=== PATIENT | female | born 1975 | race Caucasian/White ===

== ENCOUNTER 2018-07-21 10:38 | Emergency (ER) | payer OTHER ==
[~2018-07-21] VITALS: Ht 157.5 cm; Wt 51.2 kg
[2018-07-21] MEDS ORDERED: SODIUM CHLORIDE 0.9% 1,000 ML IV ONE (10:56)
[2018-07-21] MEDS ORDERED: SODIUM CHLORIDE FLUSH 10ML SYR IVF ONE (11:00)
[2018-07-21] MEDS ORDERED: ONDANSETRON 2MG/ML, 2ML IVPush ONE (11:00)
[2018-07-21] MEDS ORDERED: SODIUM CHLORIDE 0.9% 1,000ML IVBOLUS ONE (11:00)
[2018-07-21] MEDS ORDERED: ONDANSETRON 2MG/ML, 2ML ONE (11:27)
[2018-07-21] MEDS ORDERED: HYDROmorphone 2 MG/ML, 1ML ONE ×2 (11:27→12:43)
[2018-07-21] MEDS: HYDROmorphone 2 MG/ML, 1ML IVPush PRN ×2 (11:30→12:47)
--- NOTE | 2018-07-21 11:30 | NUR ---
Medicated as per emar for 5/10 LUQ pain. IVF hung, pt placed on continuous SPO2 & NIBP monitoring. SR up x 2, call light within reach.
[2018-07-21 11:42] LABS: MICROSCOPIC INDICATED
[2018-07-21 11:43] LABS: ALANINE AMINOTRANSFERASE 20 U/L (12-78); ALBUMIN 4.2 g/dL (3.4-5.0); ANION GAP 5 mmol/L (5-15); CALCIUM 8.6 mg/dL (8.5-10.1); CHLORIDE 105 mmol/L (98-107); CREATININE 0.65 mg/dL (0.55-1.02)
[2018-07-21 11:45] LABS: BASOPHILS # (AUTO) 0.01 x10^3/uL (0-0.1); BASOPHILS % (AUTO) 0 % (0-1); EOSINOPHILS # (AUTO) 0.02 x10^3/uL (0-0.4); EOSINOPHILS % (AUTO) 0 % (1-7); LYMPHOCYTES % (AUTO) 9 % (22-44); MD NO; MEAN CORPUSCULAR HEMOGLOBIN 30.9 pg (27.0-34.8); MEAN CORPUSCULAR HGB CONC 34.3 g/dL (32.4-35.8); MEAN PLATELET VOLUME 7.1 fL (7.4-10.4); MONOCYTES % (AUTO) 7 % (2-9); NEUTROPHILS % (AUTO) 83 % (42-75); PLATELET COUNT 310 x10^3/uL (130-400); RED BLOOD COUNT 4.78 x10^6/uL (3.82-5.3); RED CELL DISTRIBUTION WIDTH 12.9 % (9.6-15.2)
--- NOTE | 2018-07-21 11:45 | NUR ---
Pt reports no nausea, pain improved 2/10. VSS.
[2018-07-21 11:46] LABS: ALKALINE PHOSPHATASE 50 U/L (45-117); BILIRUBIN,TOTAL 0.5 mg/dL (0.2-1.0); TOTAL PROTEIN 7.8 g/dL (6.4-8.2)
[2018-07-21 12:00] LABS: CULTURE INDICATED? NO
--- NOTE | 2018-07-21 12:21 | NUR ---
Plan for CT ABD. Pt updated. Pain controlled.
--- NOTE | 2018-07-21 12:47 | NUR ---
Pt states pain is back 7/10 epigastric & LUQ. Dilaudid IV repeated. Remains on continuous SPO2 & NIBP monitors. CT ABD pending.
--- NOTE | 2018-07-21 13:05 | NUR ---
Pain 3/10, no nausea, CT results pending.
--- NOTE | 2018-07-21 13:06 | NUR ---
Error- still waiting on CT
--- NOTE | 2018-07-21 13:20 | NUR ---
Pt to CT
[2018-07-21] MEDS ORDERED: OMNIPAQUE 350 MG/ML, 100ML BOTTLE ONE (13:23)
[2018-07-21] MEDS ORDERED: CEFTRIAXONE PMX 1GM/50ML 50 ML ONE (13:51)
[2018-07-21] MEDS ORDERED: CEFTRIAXONE PMX 1GM/50ML 50 ML IVPB ONE (14:00)
--- NOTE | 2018-07-21 14:00 | NUR ---
IV abx sabi, POC for d/c after infusion
[2018-07-21 14:46] VITALS: BP 106/55
--- NOTE | 2018-07-21 14:47 | NUR ---
IV abx infused, Patient given discharge instructions and they have confirmed that they understand the instructions. Patient ambulatory with steady gait.
== END 2018-07-21 14:50 | disposition home or self-care (01) ==
LOC: ED 14:44
DX: R10.84 Generalized abdominal pain (principal); J15.9 Unspecified bacterial pneumonia; E03.9 Hypothyroidism, unspecified
CPT/HCPCS: 36415; 74177; 80053; 81001; 83605; 83690; 85025; 87040; 96365; 96375; 96376; 99284; J0696; J1170; J2405; J7030; Q9967

== ENCOUNTER 2019-04-06 16:19 | Emergency (ER) | payer OTHER ==
[~2019-04-06] VITALS: Ht 157.5 cm; Wt 55.0 kg
[2019-04-06 16:22] VITALS: BP 114/73
[2019-04-06] MEDS ORDERED: ONDANSETRON 2MG/ML, 2ML ONE (16:28)
--- NOTE | 2019-04-06 16:31 | NUR ---
PT HERE WITH C/O LEFT SHOULDER PAIN FOR 1 YEAR.
[2019-04-06] MEDS ORDERED: HYDROcodone/APAP 5/325 TABLET ONE (16:57)
--- NOTE | 2019-04-06 16:58 | NUR ---
PT EDICATED PER ORDER, ICE BAG GIVEN.
[2019-04-06] MEDS ORDERED: HYDROcodone/APAP 5/325 TABLET PO ONE (17:00)
--- NOTE | 2019-04-06 17:37 | NUR ---
Patient/Caregiver given discharge instructions and they have confirmed that they understand the instructions. Patient ambulatory with steady gait.
== END 2019-04-06 17:39 | disposition home or self-care (01) ==
LOC: ED 17:38
DX: M75.32 Calcific tendinitis of left shoulder (principal); E03.9 Hypothyroidism, unspecified
CPT/HCPCS: 99283

== ENCOUNTER 2020-10-09 14:11 | Emergency (ER) | payer OTHER ==
[~2020-10-09] VITALS: Ht 157.5 cm; Wt 60.1 kg
--- NOTE | 2020-10-09 15:12 | NUR ---
RETAIL SALESWORKER: PT TO ROOM FROM LOBBY
--- NOTE | 2020-10-09 15:15 | NUR ---
Pt ambulatory to room without gait disturbance noted. States hx ovarian cysts with pain in LLQ x4 days, and states she fears rupture if it's a cyst due to the intensity of the pain. Changing into gown now.
--- NOTE | 2020-10-09 15:45 | NUR ---
patient transportation driver completed. sound technician at bedside for draw. Pt states she will go give a UA sample as soon as lab is done. Supplies and instructions provided for UA with stated understanding.
[2020-10-09] MEDS ORDERED: LEVO25TA2 PO (15:50)
[2020-10-09 16:12] LABS: ALBUMIN 3.9 g/dL (3.4-5.0); CALCIUM 8.9 mg/dL (8.5-10.1); CHLORIDE 107 mmol/L (98-107); CREATININE 0.77 mg/dL (0.55-1.02)
[2020-10-09 16:16] LABS: BASOPHILS % (AUTO) 1 % (0-1); EOSINOPHILS % (AUTO) 2 % (1-7); LYMPHOCYTES % (AUTO) 28 % (22-44); MEAN CORPUSCULAR HEMOGLOBIN 30.4 pg (27.0-34.8); MEAN CORPUSCULAR HGB CONC 34.1 g/dL (32.4-35.8); MEAN PLATELET VOLUME 7.2 fL (7.4-10.4); MONOCYTES % (AUTO) 12 % (2-9); NEUTROPHILS % (AUTO) 58 % (42-75); PLATELET COUNT 329 x10^3/uL (130-400); RED BLOOD COUNT 4.93 x10^6/uL (3.82-5.3); RED CELL DISTRIBUTION WIDTH 12.9 % (9.6-15.2)
[2020-10-09 16:22] LABS: ANION GAP 6 mmol/L (5-15)
--- NOTE | 2020-10-09 16:27 | NUR ---
UA sample obtained and sent. Pt just completed US exam. Call light in reach and US tech brought more warm blankets for pt.
--- NOTE | 2020-10-09 16:30 | NUR ---
Lab results reviewed.
[2020-10-09 16:36] LABS: MICROSCOPIC NOT IND
--- NOTE | 2020-10-09 16:36 | NUR ---
US results reviewed. Awaiting UA results now before MD recheck.
--- NOTE | 2020-10-09 16:49 | NUR ---
UA results reviewed and chart marked for recheck at this time.
[2020-10-09 17:59] VITALS: BP 108/70
== END 2020-10-09 18:01 | disposition home or self-care (01) ==
LOC: ED 14:41
DX: R10.32 Left lower quadrant pain (principal); E03.9 Hypothyroidism, unspecified; Z90.89 Acquired absence of other organs; Z90.49 Acquired absence of other specified parts of digestive tract; Z90.710 Acquired absence of both cervix and uterus
CPT/HCPCS: 36415; 76830; 80048; 81003; 82040; 85025; 99284